=== PATIENT | male | born 1975 | race Caucasian/White ===

== ENCOUNTER 2017-11-08 08:24 | Emergency (ER) | payer OTHER ==
[2017-11-08] MEDS ORDERED: RX INFO: IV CONTRAST WAS GIVEN 1 EACH MISC MISCELLANE PRN (08:42)
--- NOTE | 2017-11-08 08:53 | ED ---
General Adult HPI - General Chief complaint: ENT Stated complaint: Sore throat Time Seen by Provider: 11/08/17 08:32 Source: patient, RN notes reviewed Mode of arrival: ambulatory Limitations: no limitations - History of Present Illness Initial comments: Patient is a 41-year-old male with no significant past medical history, who presents emergency room today with a chief complaint of sore throat for the last several months. He does not that he saw family doctor approximately a month ago and was advised that he should see ENT for possible mass to the right side. Patient states that his appointment Pushed back there is no dental 18th. He states she's been having increased pain. He states it hurts when he swallows. He states he has noticed some weight loss over the last few months. He states he's worried about cancer as there is a family history of throat cancer. He does admit to being a daily smoker. Patient denies any recent fever , chills, shortness of breath, chest pain, back pain, abdominal pain, nausea or vomiting, headaches or visual changes, or any other complaints. - Related Data Home Medications Medication Instructions Recorded Confirmed Buprenorphine HCl/Naloxone HCl 1 film SL QAM 11/08/17 11/08/17 [Suboxone 8 mg-2 mg Sl Film] Buprenorphine HCl/Naloxone HCl 1.5 film SL 11/08/17 11/08/17 [Suboxone 8 mg-2 mg Sl Film] Dextroamphetamine/Amphetamine 20 mg PO QAM 11/08/17 11/08/17 [Adderall Xr] Ranitidine HCl [Zantac] 150 mg PO BID 11/08/17 11/08/17 buPROPion XL [Wellbutrin Xl] 150 mg PO DAILY 11/08/17 11/08/17 lamoTRIgine [LaMICtal] 150 mg PO BID 11/08/17 11/08/17 Allergies Allergy/AdvReac Type Severity Reaction Status Date / Time No Known Allergies Allergy Verified 11/08/17 08:31 Review of Systems ROS Statement: Those systems with pertinent positive or pertinent negative responses have been documented in the HPI. ROS Other: All systems not noted in ROS Statement are negative. Past Medical History Past Medical History: No Reported History History of Any Multi-Drug Resistant Organisms: None Reported Past Surgical History: No Surgical Hx Reported Past Psychological History: Depression Smoking Status: Current every day smoker Past Alcohol Use History: None Reported Past Drug Use History: Marijuana General Exam - General Exam Comments Initial Comments: General: The patient is awake and alert, in no distress, and does not appear acutely ill. Eye: Pupils are equal, round and reactive to light, extra-ocular movements are intact. No nystagmus. There is normal conjunctiva bilaterally. No signs of icterus. Ears, nose, mouth and throat: There are moist mucous membranes and no oral lesions. Uvula midline. Swallows without any difficulty tolerating oral secretions. Neck: The neck is supple, there is no tenderness or JVD. Cardiovascular: There is a regular rate and rhythm. No murmur, rub or gallop is appreciated. Respiratory: Lungs are clear to auscultation, respirations are non-labored, breath sounds are equal. No wheezes, stridor, rales, or rhonch Musculoskeletal: Normal ROM, no tenderness. Strength 5/5. Sensation intact. Pulses equal bilaterally 2+. Neurological: A&O x 3. CN II-XII intact, There are no obvious motor or sensory deficits. Coordination appears grossly intact. Speech is normal. Skin: Skin is warm and dry and no rashes or lesions are noted. Psychiatric: Cooperative, appropriate mood & affect, normal judgment. Limitations: no limitations Course Vital Signs 11/08/17 08:28 Temperature 97 F L Pulse Rate 61 Respiratory 16 Rate Blood Pressure 117/69 O2 Sat by Pulse 100 Oximetry Medical Decision Making - Medical Decision Making Patient's CAT scans been reviewed shows no acute abnormalities. Results were discussed with the patient. He is advised to continue to follow up with ENT for further evaluation. Patient states understanding and is in agreement. Disposition Clinical Impression: Sore throat Disposition: HOME SELF-CARE Condition: Good Instructions: Pharyngitis (ED) Additional Instructions: Please continue to follow up with ENT with your scheduled appointment. Please return to emergency room if the symptoms increase or worsen or for any other concerns. Referrals: None,Stated [REFERRING] - 1-2 days Time of Disposition: 09:31
--- NOTE | 2017-11-08 09:19 | CT ---
EXAMINATION TYPE: CT soft tissue neck w con DATE OF EXAM: 11/08/2017 COMPARISON: NONE HISTORY: sore throat CT DLP: 576 mGycm CONTRAST: CT scan of the neck is performed with IV Contrast, patient injected with 100 mL of Omnipaque 300. Contrast enhanced CT of the neck was performed from the skull base through the lung apices. AIRWAY: The supraglottic, glottic, and subglottic portions of the airway appear patent and free of mass. SALIVARY GLANDS: The submandibular and parotid glands are free of mass or inflammatory process. THYROID GLAND: No nodules or masses seen. LYMPH NODES: No adenopathy seen greater than 1cm. LUNG APICES: No nodule or mass is seen. OTHER: Vascular structures are patent. No significant degenerative change of the cervical spine. N o abscess seen. IMPRESSION: 1. No significant abnormality appreciated.
[2017-11-09 22:57] VITALS: BP 117/69; PULSE 61; RESP 16; TEMP 97
== END 2017-11-08 09:58 | disposition home or self-care (01) ==
LOC: EC 08:24
DX: J02.9 Acute pharyngitis, unspecified (principal); F32.9 Major depressive disorder, single episode, unspecified; F17.200 Nicotine dependence, unspecified, uncomplicated; Z79.899 Other long term (current) drug therapy
CPT/HCPCS: 70491; 99283; Q9967

== ENCOUNTER 2023-12-13 10:06 | Emergency (ER) | payer OTHER ==
[2023-12-13 10:35] VITALS: RESP 18
--- NOTE | 2023-12-13 10:39 | ED ---
ENT HPI - General Chief complaint: Dental/Oral Stated complaint: dental pain Time Seen by Provider: 12/13/23 10:26 Source: patient, RN notes reviewed Mode of arrival: ambulatory Limitations: no limitations - History of Present Illness Initial comments: Patient is a 48-year-old male presented to ER with chief complaint of dental pain. Patient reports he is getting all of his teeth pulled on Tuesday. He recently finished a Z-Tyshawn which improved his pain. Patient has not been taking narcotic medication due to taking Suboxone. He states nausea makes his pain better is cold water. He states the pain is limiting, she can eat and inhibiting his sleep. Denies any fevers, chills, night sweats, chest pain, shortness of breath. - Related Data Home Medications Medication Instructions Recorded Confirmed Buprenorphine HCl/Naloxone HCl 1 film SL QAM 11/08/17 11/08/17 [Suboxone 8 mg-2 mg Sl Film] Buprenorphine HCl/Naloxone HCl 1.5 film SL 11/08/17 11/08/17 [Suboxone 8 mg-2 mg Sl Film] Dextroamphetamine/Amphetamine 20 mg PO QAM 11/08/17 11/08/17 [Adderall Xr] Ranitidine HCl [Zantac] 150 mg PO BID 11/08/17 11/08/17 buPROPion XL [Wellbutrin Xl] 150 mg PO DAILY 11/08/17 11/08/17 lamoTRIgine [LaMICtal] 150 mg PO BID 11/08/17 11/08/17 Previous Rx's Medication Instructions Recorded Clindamycin [Cleocin] 150 mg PO Q6H #40 capsule 12/13/23 Allergies Allergy/AdvReac Type Severity Reaction Status Date / Time No Known Allergies Allergy Verified 12/13/23 10:24 Review of Systems ROS Statement: Those systems with pertinent positive or pertinent negative responses have been documented in the HPI. ROS Other: All systems not noted in ROS Statement are negative. Past Medical History Past Medical History: No Reported History History of Any Multi-Drug Resistant Organisms: None Reported Past Surgical History: No Surgical Hx Reported Past Psychological History: Depression Smoking Status: Current every day smoker Past Alcohol Use History: None Reported Past Drug Use History: Marijuana General Exam Limitations: no limitations General appearance: alert, in no apparent distress Head exam: Present: atraumatic, normocephalic, normal inspection Eye exam: Present: normal appearance, PERRL, EOMI. Absent: scleral icterus, conjunctival injection, periorbital swelling ENT exam: Present: normal exam, mucous membranes moist, other (No teeth on upper jaw. Multiple dental caries and broken teeth on bottom. No drainable abscess .) Neck exam: Present: normal inspection. Absent: tenderness, meningismus, lymphadenopathy Respiratory exam: Present: normal lung sounds bilaterally. Absent: respiratory distress, wheezes, rales, rhonchi, stridor Cardiovascular Exam: Present: regular rate, normal rhythm, normal heart sounds. Absent: systolic murmur, diastolic murmur, rubs, gallop, clicks Neurological exam: Present: alert, oriented X3, CN II-XII intact Psychiatric exam: Present: normal affect, normal mood Skin exam: Present: warm, dry, intact, normal color. Absent: rash Course Vital Signs 12/13/23 12/13/23 10:21 10:59 Temperature 97.9 F 98.1 F Pulse Rate 55 L 62 Respiratory 18 18 Rate Blood Pressure 154/96 149/86 O2 Sat by Pulse 98 98 Oximetry Medical Decision Making - Medical Decision Making Was pt. sent in by a medical professional or institution (, PA, BODY SHOP WORKER, urgent care, hospital, or long-term...) When possible be specific @ -No Did you speak to anyone other than the patient for history (EMS, parent, family, police, friend...)? What history was obtained from this source @ -No Did you review nursing and triage notes (agree or disagree)? Why? @ -I reviewed and agree with nursing and triage notes Were old charts reviewed (outside hosp., previous admission, EMS record, old EKG, old radiological studies, urgent care reports/EKG's, long-term records)? Report findings @ -No old charts were reviewed Differential Diagnosis (chest pain, altered mental status, abdominal pain women, abdominal pain men, vaginal bleeding, weakness, fever, dyspnea, syncope, headache, dizziness, GI bleed, back pain, seizure, CVA, palpatations, mental health, musculoskeletal)? @ -Dental abscess, tooth fracture, pulpitis, dental carry this list is not meant to be all-inclusive EKG interpreted by me (3pts min.). @ -None X-rays interpreted by me (1pt min.). @ -None done CT interpreted by me (1pt min.). @ -None done U/S interpreted by me (1pt. min.). @ -None done What testing was considered but not performed or refused? (CT, X-rays, U/S, labs)? Why? @ -None What meds were considered but not given or refused? Why? @ -None Did you discuss the management of the patient with other professionals (professionals i.e. , PA, BODY SHOP WORKER, lab, RT, psych nurse, professor of social work, tours hostess, teacher, international first officer, case packer)? Give summary @ -No Was smoking cessation discussed for >3mins.? @ -I discussed smoking cessation for greater than 3 minutes. The risk of smoking were discussed with the patient including but not limited to risks of cancer, stroke, coronary artery disease and COPD. Also discussed with patient were multiple methods of quitting smoking. Lastly we discussed the financial cost of smoking. Was critical care preformed (if so, how long)? @ -No Were there social determinants of health that impacted care today? How? (Homelessness, low income, unemployed, alcoholism, drug addiction, transportation, low edu. Level, literacy, decrease access to med. care, long term, rehab)? @ -Drug addiction, decrease access to med care Was there de-escalation of care discussed even if they declined (Discuss DNR or withdrawal of care, Hospice)? DNR status @ -No What co-morbidities impacted this encounter? (DM, HTN, Smoking, COPD, CAD, Cancer, CVA, ARF, Chemo, Hep., AIDS, mental health diagnosis, sleep apnea, morbid obesity)? @ -Smoking Was patient admitted / discharged? Hospital course, mention meds given and route, prescriptions, significant lab abnormalities, going to OR and other pertinent info. @ -Discharge. Patient is a 48-year-old male presented to ER with chief complaint of tooth pain. Patient reports he is getting all of his teeth pulled on Tuesday. History and physical exam were completed. Vitals stable. Patient in no signs of acute distress. Patient had multiple broken teeth with dental caries present. No drainable abscess. Patient prescribed clindamycin and discharged with HurriCaine spray. Advised him to follow-up with dentist as scheduled. I educated patient importance of completing full course of antibiotics. I discussed smoking cessation for greater than 3 minutes. The risk of smoking were discussed with the patient including but not limited to risks of cancer, stroke, coronary artery disease and COPD. Also discussed with patient were multiple methods of quitting smoking. Lastly we discussed the financial cost of smoking. Return parameters were discussed. Patient be discharged stable condition with follow-up to dentist. Patient expressed understanding and agreement with care plan. Undiagnosed new problem with uncertain prognosis? @ -No Drug Therapy requiring intensive monitoring for toxicity (Heparin, Nitro, Insulin, Cardizem)? @ -No Were any procedures done? @ -No Diagnosis/symptom? @ -Dental caries/pulpitis Acute, or Chronic, or Acute on Chronic? @ -Acute Uncomplicated (without systemic symptoms) or Complicated (systemic symptoms)? @ -Uncomplicated Side effects of treatment? @ -No Exacerbation, Progression, or Severe Exacerbation? @ -No Poses a threat to life or bodily function? How? (Chest pain, [place], OR, pneumonia, PE, COPD, DKA, ARF, appy, cholecystitis, CVA, Diverticulitis, Homicidal, Suicidal, threat to staff... and all critical care pts) @ -No Disposition Clinical Impression: Dental caries, Fracture of tooth, Impacted molar Disposition: HOME SELF-CARE Condition: Stable Instructions (If sedation given, give patient instructions): Toothache (ED) Additional Instructions: Please complete full course of antibiotics. Follow-up with dentist as scheduled. Return to ER for any new or worsening symptoms. Prescriptions: Clindamycin [Cleocin] 150 mg PO Q6H #40 capsule Is patient prescribed a controlled substance at d/c from ED?: No Referrals: Nonstaff,Physician [Primary Care Provider] - 1-2 days Time of Disposition: 10:43
[2023-12-13] MEDS ORDERED: BENZOCAINE SPRAY 1 CAN MUCOUS MEM PRN (10:43)
[2023-12-13 11:06] VITALS: BP 149/86; PULSE 62; TEMP 98.1
== END 2023-12-13 11:15 | disposition home or self-care (01) ==
LOC: EC 10:06
DX: K02.9 Dental caries, unspecified (principal); K03.81 Cracked tooth; K01.1 Impacted teeth; K04.01 Reversible pulpitis; F32.A Depression, unspecified; F17.210 Nicotine dependence, cigarettes, uncomplicated; F12.90 Cannabis use, unspecified, uncomplicated; Z79.899 Other long term (current) drug therapy
CPT/HCPCS: 99282; 99406